=== PATIENT | female | born 1960 | race Caucasian/White ===

== ENCOUNTER 2018-01-11 17:41 | Inpatient (IN) | payer BC, OTHER ==
[~2018-01-11] VITALS: Ht 157.5 cm; Wt 81.6 kg
[2018-01-11] MEDS ORDERED: LORAZEPAM 2MG/ML CPJ IV STA (18:42)
[2018-01-11] MEDS ORDERED: SODIUM CHLORIDE 0.9% 1,000 ML IV ONE (18:42)
[2018-01-11] MEDS ORDERED: FOLIC ACID 1 MG, THIAMINE HCL 100 MG, MVI, ADULT NO.1 10 ML in DEXTROSE 5% WATER 1,000 ML IV ONE ×4 (18:45)
[2018-01-11 19:52] LABS: CLARITY URINE CLEAR (CLEAR); COLOR URINE YELLOW (YELLOW); KETONES URINE 3+ (NEGATIVE); LEUKOCYTE ESTERASE URINE NEGATIVE (NEGATIVE); NITRITE URINE NEGATIVE (NEGATIVE); OCCULT BLOOD URINE 2+ (NEGATIVE); PH URINE 5.5 (4.5-8.0); PROTEIN URINE 3+ (NEGATIVE); SPECIFIC GRAVITY URINE 1.023 (1.005-1.030); UROBILINOGEN URINE 0.2 E.U./dL (0.2-1.0)
[2018-01-11 20:19] LABS: *AMPHETAMINES SCREEN URINE NEGATIVE (NEGATIVE); *BARBITURATES SCREEN URINE NEGATIVE (NEGATIVE); *BENZODIAZEPINES SCREEN URINE NEGATIVE (NEGATIVE); *COCAINE SCREEN URINE NEGATIVE (NEGATIVE); METHADONE URINE SCREEN NEGATIVE (NEGATIVE)
[2018-01-11 20:20] LABS: CANNABINOID URINE SCREEN PRESUMTIVE POSITIVE (NEGATIVE); OPIATES URINE SCREEN NEGATIVE (NEGATIVE); PHENCYCLIDINE URINE SCREEN NEGATIVE (NEGATIVE)
[2018-01-11 20:41] LABS: BASOPHILS % 0.6 % (0.0-2.0); EOSINOPHILS % 0.2 % (0.0-5.0); HEMATOCRIT. 41.2 % (36.0-48.0); HEMOGLOBIN. 13.8 g/dL (12.0-16.0); LYMPHOCYTES % 25.9 % (20.0-50.0); MEAN CORPUSCULAR HEMOGLOBIN 29.9 pg (28.0-32.0); MEAN CORPUSCULAR VOLUME 89.5 fL (81.0-99.0); MEAN PLATELET VOLUME 7.4 fl (7.4-10.4); MONOCYTES % 9.2 % (2.0-8.0); NEUTROPHILS % 64.1 % (40.0-76.0); PLATELET 269 x1000/uL (130-400); RED BLOOD CELL COUNT 4.61 mill/uL (4.2-5.4); RED CELL DISTRIBUTION WIDTH 15.8 % (11.6-14.6)
[2018-01-11 20:43] LABS: CHLORIDE 98 mEq/L (98-107)
[2018-01-11 20:50] LABS: ETHANOL BLOOD 192 mg/dL
[2018-01-12] MEDS ORDERED: LORAZEPAM 2MG/ML CPJ IV ONE
[2018-01-12] MEDS ORDERED: ATOR20TA MT (09:47)
[2018-01-12] MEDS ORDERED: AMLO10TA80 MT (09:47)
[2018-01-12] MEDS ORDERED: TRAZ-212 MT (09:47)
[2018-01-12] MEDS ORDERED: ESCI20TA MT (09:47)
[2018-01-12 10:00] VITALS: BP 114/66
[2018-01-12 10:23] VITALS: BP 114/66
[2018-01-12 12:00] VITALS: BP 106/72
[2018-01-12] MEDS ORDERED: HYDROCODONE/ACETAMINOPHEN 5/325MG TABLET PO PRN (12:15)
[2018-01-12] MEDS ORDERED: SODIUM CHLORIDE 0.9% 500 ML IV ONE (13:00)
[2018-01-12] MEDS: LORAZEPAM 2MG/ML CPJ IV PRN (13:12)
[2018-01-12] MEDS: PANTOPRAZOLE SODIUM 40 MG/VIAL IV SCH (13:13)
[2018-01-12 16:00] VITALS: BP 114/69
[2018-01-12] MEDS ORDERED: DILTIAZEM HCL 5MG/ML 5ML VIAL IV NR ×2 (16:00→16:30)
[2018-01-12 16:08] LABS: HEMATOCRIT 41.8 % (36.0-48.0); HEMOGLOBIN 13.9 g/dL (12.0-16.0); MEAN CORPUSCULAR HEMOGLOBIN 30.2 pg (28.0-32.0); MEAN CORPUSCULAR VOLUME 90.5 fL (81.0-99.0); PLATELET 269 x1000/uL (130-400); RED BLOOD CELL COUNT 4.61 mill/uL (4.2-5.4)
[2018-01-12 16:20] LABS: AMMONIA 34 uMol/L (<32); CHLORIDE 95 mEq/L (98-107)
[2018-01-12 16:22] LABS: PROTHROMBIN TIME 9.7 sec (9.1-11.1)
[2018-01-12] MEDS: SODIUM CHLORIDE 0.9% 1,000 ML IV SCH ×4 (16:29→20:05)
[2018-01-12] MEDS ORDERED: ACETAMINOPHEN 325MG TABLET PO PRN (16:30)
[2018-01-12] MEDS ORDERED: DIGOXIN 500MCG/2ML AMP IV NR ×2 (16:30→18:30)
[2018-01-12] MEDS ORDERED: IBUPROFEN 400MG TABLET PO PRN (16:30)
[2018-01-12 16:33] LABS: HDL CHOLESTEROL 113 mg/dL (40-59); LDL CHOLESTEROL 80 mg/dL (5-100)
[2018-01-12 16:51] LABS: HEPATITIS B SURFACE ANTIGEN NEGATIVE
[2018-01-12 17:19] LABS: HEPATITIS B CORE AB IGM NEGATIVE
[2018-01-12 17:21] LABS: HEPATITIS A AB IGM NEGATIVE (NEGATIVE)
[2018-01-12] MEDS ORDERED: POTASSIUM CHLORIDE INJ 40 MEQ in DEXT 5% WATER 250 ML IV NR (18:00)
[2018-01-12 18:34] LABS: PHOSPHORUS 1.6 mg/dL (2.5-4.9); T4 FREE 0.98 ng/dL (0.76-1.46)
[2018-01-12 20:00] VITALS: BP 123/65
[2018-01-12] MEDS ORDERED: POTASSIUM-SODIUM PHOSPHATE POWDER PACKET PO NR (21:30)
[2018-01-12] MEDS ORDERED: TRAZODONE HCL 50MG TABLET PO SCH (21:45)
[2018-01-12] MEDS ORDERED: MEDICATION NOT ON FORMULARY EA (Trazodone Hcl 50 TAB) MT PRN (21:45)
[2018-01-12] MEDS ORDERED: TRAZODONE HCL 50MG TABLET PO PRN (21:45)
[2018-01-12] MEDS: ENOXAPARIN 40MG/0.4ML SYR SUBCUT SCH (22:16)
[2018-01-12 22:57] LABS: CHLORIDE 100 mEq/L (98-107)
[2018-01-13] VITALS: BP 119/75
[2018-01-13] MEDS: MVI, ADULT NO.1 10 ML, FOLIC ACID 1 MG, THIAMINE HCL 100 MG in DEXT 5%/0.45% NACL 1000M... IV SCH ×8 (00:50→22:20)
[2018-01-13 04:00] VITALS: BP 135/70
[2018-01-13 07:08] LABS: HEMATOCRIT 38.2 % (36.0-48.0); HEMOGLOBIN 12.8 g/dL (12.0-16.0); MEAN CORPUSCULAR HEMOGLOBIN 30.2 pg (28.0-32.0); MEAN CORPUSCULAR VOLUME 90.4 fL (81.0-99.0); PLATELET 243 x1000/uL (130-400); RED BLOOD CELL COUNT 4.22 mill/uL (4.2-5.4); RED CELL DISTRIBUTION WIDTH 16.1 % (11.6-14.6)
[2018-01-13 08:00] VITALS: BP 136/71
[2018-01-13 08:00] LABS: CHLORIDE 101 mEq/L (98-107)
[2018-01-13 08:07] LABS: FOLIC ACID (FOLATE) SERUM >20 ng/mL ng/mL (>5.38); VITAMIN B12 SERUM 771 pg/mL (211-911)
[2018-01-13 08:09] LABS: PHOSPHORUS 1.4 mg/dL (2.5-4.9)
[2018-01-13] MEDS ORDERED: MEDICATION NOT ON FORMULARY EA (Escitalopram Oxalate (Lexapro) 1 TAB) MT SCH (09:00)
[2018-01-13] MEDS: PANTOPRAZOLE SODIUM 40 MG/VIAL IV SCH (09:07)
[2018-01-13] MEDS: CITALOPRAM HYDROBROMIDE 40MG TABLET PO SCH (09:07)
[2018-01-13] MEDS: AMLODIPINE 10MG TABLET PO SCH (09:10)
[2018-01-13] MEDS: LORAZEPAM 2MG/ML CPJ IV PRN (09:32)
[2018-01-13] MEDS ORDERED: POTASSIUM PHOS,M-BASIC-D-BASIC 15 MMOL in DEXT 5% WATER 245 ML IV SCH (11:00)
[2018-01-13] MEDS ORDERED: LORAZEPAM 2MG/ML CPJ IV PRN (11:01)
[2018-01-13 12:00] VITALS: BP 147/71
[2018-01-13] MEDS: LEVOFLOXACIN 500MG PREMIX 100 ML IV SCH (12:44)
[2018-01-13] MEDS: METRONIDAZOLE 500 MG PREMIX 100 ML IV SCH ×2 (13:52→22:20)
[2018-01-13] MEDS: DILTIAZEM HCL 30MG TABLET PO SCH ×2 (13:55→20:17)
[2018-01-13] MEDS: CHLORDIAZEPOXIDE 5 MG CAPSULE PO SCH ×2 (14:00→22:03)
[2018-01-13] MEDS ORDERED: POTASSIUM-SODIUM PHOSPHATE POWDER PACKET PO NR ×2 (15:15→20:00)
[2018-01-13 16:00] VITALS: BP 139/70
[2018-01-13] MEDS ORDERED: LOPERAMIDE HCL 2MG CAPSULE PO NR (16:15)
[2018-01-13 19:55] LABS: CHLORIDE 104 mEq/L (98-107)
[2018-01-13 20:00] VITALS: BP 116/65
[2018-01-13] MEDS ORDERED: LOPERAMIDE HCL 2MG CAPSULE PO PRN (20:00)
[2018-01-13 20:04] LABS: PHOSPHORUS 1.3 mg/dL (2.5-4.9)
[2018-01-13] MEDS: ENOXAPARIN 40MG/0.4ML SYR SUBCUT SCH (20:18)
[2018-01-14] VITALS: BP 119/73
[2018-01-14 04:00] VITALS: BP 127/66
[2018-01-14] MEDS: METRONIDAZOLE 500 MG PREMIX 100 ML IV SCH ×3 (06:00→21:17)
[2018-01-14] MEDS: CHLORDIAZEPOXIDE 5 MG CAPSULE PO SCH ×3 (06:04→21:17)
[2018-01-14 07:51] LABS: CHLORIDE 102 mEq/L (98-107)
[2018-01-14 07:52] LABS: HEMATOCRIT 39.6 % (36.0-48.0); HEMOGLOBIN 13.5 g/dL (12.0-16.0); MEAN CORPUSCULAR HEMOGLOBIN 30.9 pg (28.0-32.0); MEAN CORPUSCULAR VOLUME 90.3 fL (81.0-99.0); PLATELET 256 x1000/uL (130-400); RED BLOOD CELL COUNT 4.39 mill/uL (4.2-5.4); RED CELL DISTRIBUTION WIDTH 15.8 % (11.6-14.6)
[2018-01-14 08:00] VITALS: BP 140/58
[2018-01-14] MEDS: PANTOPRAZOLE SODIUM 40 MG/VIAL IV SCH (09:03)
[2018-01-14] MEDS: DILTIAZEM HCL 30MG TABLET PO SCH ×2 (09:03→21:16)
[2018-01-14] MEDS: CITALOPRAM HYDROBROMIDE 40MG TABLET PO SCH (09:03)
[2018-01-14] MEDS: AMLODIPINE 10MG TABLET PO SCH (09:04)
[2018-01-14 12:00] VITALS: BP 123/60
[2018-01-14] MEDS: LEVOFLOXACIN 500MG PREMIX 100 ML IV SCH (12:03)
[2018-01-14] MEDS ORDERED: POTASSIUM CHLORIDE 20MEQ TABLET SR PO SCH (13:00)
[2018-01-14 16:00] VITALS: BP 125/67
[2018-01-14 20:00] VITALS: BP 111/64
[2018-01-14] MEDS: ENOXAPARIN 40MG/0.4ML SYR SUBCUT SCH (21:17)
[2018-01-14] MEDS: MVI, ADULT NO.1 10 ML, FOLIC ACID 1 MG, THIAMINE HCL 100 MG in DEXT 5%/0.45% NACL 1000M... IV SCH ×4 (21:17)
[2018-01-15] VITALS: BP 145/67
[2018-01-15] MEDS: METRONIDAZOLE 500 MG PREMIX 100 ML IV SCH ×2 (06:26→13:43)
[2018-01-15] MEDS: CHLORDIAZEPOXIDE 5 MG CAPSULE PO SCH ×2 (06:26→13:43)
[2018-01-15 08:29] VITALS: BP 141/69
[2018-01-15] MEDS: PANTOPRAZOLE SODIUM 40 MG/VIAL IV SCH (10:05)
[2018-01-15] MEDS: CITALOPRAM HYDROBROMIDE 40MG TABLET PO SCH (10:05)
[2018-01-15] MEDS: DILTIAZEM HCL 30MG TABLET PO SCH (10:06)
[2018-01-15] MEDS: AMLODIPINE 10MG TABLET PO SCH (10:06)
[2018-01-15] MEDS: LEVOFLOXACIN 500MG PREMIX 100 ML IV SCH (10:51)
[2018-01-15 12:00] VITALS: BP 113/53
[2018-01-15 12:32] LABS: HEMATOCRIT 40.5 % (36.0-48.0); HEMOGLOBIN 13.7 g/dL (12.0-16.0); MEAN CORPUSCULAR HEMOGLOBIN 30.6 pg (28.0-32.0); MEAN CORPUSCULAR VOLUME 90.7 fL (81.0-99.0); PLATELET 290 x1000/uL (130-400); RED BLOOD CELL COUNT 4.47 mill/uL (4.2-5.4); RED CELL DISTRIBUTION WIDTH 16.4 % (11.6-14.6)
[2018-01-15 12:55] LABS: CHLORIDE 105 mEq/L (98-107)
[2018-01-15 16:00] VITALS: BP 120/60
[2018-01-15 18:06] VITALS: BP 120/60
[2018-01-16] MEDS ORDERED: METRONIDAZOLE 500MG TABLET PO SCH (06:00)
[2018-01-16] MEDS ORDERED: LEVOFLOXACIN 500MG TABLET PO SCH (11:00)
== END 2018-01-15 19:02 | disposition home or self-care (01) | DRG 309 ==
LOC: ER 17:41 → 5WST 21:44 → ENRESERV 01-12 08:39 → CANBEDREQ 01-12 08:48
PROVIDERS: ADMIT Internal Medicine; ATTEND Internal Medicine
PROC: 5A09357 Assistance with Respiratory Ventilation, Less than 24 Consecutive Hours, Continuous Positive Airway Pressure (ICD-10-PCS; principal; 2018-01-12)
DX: I48.91 Unspecified atrial fibrillation (principal); F10.239 Alcohol dependence with withdrawal, unspecified; E72.20 Disorder of urea cycle metabolism, unspecified; E66.2 Morbid (severe) obesity with alveolar hypoventilation; R45.851 Suicidal ideations; E87.6 Hypokalemia; E86.0 Dehydration; E78.00 Pure hypercholesterolemia, unspecified; E78.5 Hyperlipidemia, unspecified; E83.39 Other disorders of phosphorus metabolism; F32.9 Major depressive disorder, single episode, unspecified; F43.10 Post-traumatic stress disorder, unspecified; R73.9 Hyperglycemia, unspecified; R74.0 Nonspecific elevation of levels of transaminase and lactic acid dehydrogenase [LDH]; I80.9 Phlebitis and thrombophlebitis of unspecified site; F41.9 Anxiety disorder, unspecified; F12.90 Cannabis use, unspecified, uncomplicated; Z90.710 Acquired absence of both cervix and uterus; Z99.81 Dependence on supplemental oxygen; Z68.32 Body mass index [BMI] 32.0-32.9, adult; Z98.891 History of uterine scar from previous surgery
CPT/HCPCS: 36415; 71045; 76700; 80048; 80061; 80305; 80307; 80329; 81025; 82140; 82607; 82746; 83036; 83735; 84100; 84439; 84443; 84484; 85027; 86705; 86709; 86803; 87015; 87045; 87340; 87427; 87449; 87493; 93005; 93306; 94660; 96361; 96365; 96366; 96375; 96376; 99285; C9113; G0482; J1160; J1650; J1956; J2060; J3411; J3480; J3490; J7030; J7040; J7060; J7070